=== PATIENT | female | born 1970 | race Hispanic/Latino ===

== ENCOUNTER 2017-06-15 08:38 | Day surgery (SDC) | payer OTHER ==
--- NOTE | 2017-06-15 09:18 | Anesthesia Consultation ---
Anesthesia Consult and Med Hx Date of service: 06/15/17 - Airway Anesthetic Teeth Evaluation: Good, Bridges ROM Head & Neck: Adequate Mental/Hyoid Distance: Adequate Mallampati Class: Class II Intubation Access Assessment: Probably Good - Pulmonary Exam CTA: Yes - Cardiac Exam Cardiac Exam: RRR - Pre-Operative Health Status ASA Pre-Surgery Classification: ASA1 - Pulmonary Hx Smoking: Yes (STOPPED X 15 YRS-1/2PPD X 2YRS) Hx Sleep Apnea: No (EH PRE SCREEN NEGATIVE) - Cardiovascular System Hx Hypertension: No - Central Nervous System Hx Back Pain: Yes - Other Systems Hx Cancer: No
[2017-06-15] MEDS ORDERED: DILAUDID IV PRN (09:19)
[2017-06-15] MEDS ORDERED: PERCOCET 5/325 PO PRN (09:19)
[2017-06-15] MEDS ORDERED: ZOFRAN IV PRN (09:19)
--- NOTE | 2017-06-15 09:19 | Anesthesia Day of Surgery ---
Anesthesia Day of Surgery - Day of Surgery Patient Examined: Yes Patient H&P Reviewed: Yes Patient is NPO: Yes
[2017-06-15] MEDS ORDERED: LACTATED RINGERS 1,000 ML IV SCH (10:00)
[2017-06-15] MEDS ORDERED: VERSED IV NR (10:00)
[2017-06-15] MEDS ORDERED: PEPCID PO NR (10:00)
[2017-06-15] MEDS ORDERED: ANCEF/STERILE WATER 2 GM/20 ML IV NR (11:00)
[2017-06-15] MEDS ORDERED: DIPRIVAN 10 MG/ML IV ONE (11:23)
[2017-06-15] MEDS ORDERED: DILAUDID ONE (11:24)
[2017-06-15] MEDS ORDERED: VERSED ONE (11:24)
[2017-06-15] MEDS ORDERED: XYLOCAINE MPF 2% ONE (11:24)
[2017-06-15] MEDS ORDERED: XYLOCAINE 1% 20 mL ONE (11:26)
[2017-06-15] MEDS ORDERED: MARCAINE 0.25% INFILTRATI ONE ×2 (11:26→11:59)
[2017-06-15] MEDS ORDERED: XYLOCAINE 1% 20 mL INFILTRATI ONE (11:59)
[2017-06-15] MEDS ORDERED: NACL 0.9% IR ONE (12:00)
[2017-06-15] MEDS ORDERED: DECADRON ONE (12:10)
[2017-06-15] MEDS ORDERED: ANTIBIOTIC OINT TP ONE (12:20)
[2017-06-15] MEDS ORDERED: DECADRON IM ONE (12:49)
[2017-06-15 13:05] VITALS: BP 128/73
--- NOTE | 2017-06-15 13:34 | XRay Report ---
Left foot: Postoperative exam. AP and lateral projections demonstrate edema and soft tissue thickening along the medial foot adjacent to the tarsal and metatarsal bones with a single small gas bubble. The lateral aspect of the distal first metatarsal is relatively straight with a thin cortex and may have been the site of surgery. No other significant findings. Impression: No apparent postoperative complications identified.
--- NOTE | 2017-06-20 06:27 | Operative Report ---
PREOPERATIVE DIAGNOSIS: Bunion deformity, left foot. POSTOPERATIVE DIAGNOSIS: Bunion deformity, left foot. PROCEDURE: Modified Scott bunionectomy, left foot. SURGEON: Chris Bardales DPM. ANESTHESIA: Local with monitored anesthesia care and IV sedation. TOURNIQUET: Pneumatic ankle tourniquet, left ankle. ESTIMATED BLOOD LOSS: Less than 10 mL. PROCEDURE IN DETAIL: The patient was brought into the operating room, placed on the operating table in supine position. Following intravenous sedation, the patient was given 1 gram of Ancef prophylactically. At this time, 12 mL of 1:1 mix of 1% lidocaine plain plus 0.25% Marcaine plain was infiltrated into the affected site after cleansing with alcohol. It ____ to be noted the patient is allergic to IODINE, so no iodine was used in the scrubbing prep. At that time, a well padded pneumatic ankle tourniquet placed 2-3 cm proximal to both the medial and lateral malleolus and the procedure was begun. At this time, attention was directed to the medial aspect of the first metatarsophalangeal joint, which is 6 cm linear longitudinal incision was made and deepened with both sharp and blunt dissection with care being taken to protect all vital neurovascular structures as needed. At this time, the area was deepened with both sharp and blunt dissections down to the level of the capsule. ____ was transected without incident. At this time, exposure of the first metatarsal head on the affected area was performed, was observed and a sagittal saw was used to remove a 3 mm wedge of bone from the medial aspect of the first metatarsal head and in the dorsal aspect 2 mm wedge. This was followed by 2 mm wedge at the proximal aspect of the proximal phalanx medially. At this time, a deep dissection was used to go laterally to transect the adductor tendon apparatus when the foot would be in position. At this time, a reduction and deformity was noted and good reduction was observed while the foot was held in a loaded position. At this time, redundant tissue was removed from the capsular structures and attention was redirected to the first metatarsophalangeal joint, which ____ to smooth all rough edges. At this time, the foot was held in a more corrected position and 3-0 Vicryl was used ____ structures followed by 4-0 Vicryl, subcuticular closure performed with 4-0 Prolene While the toe was held in a more corrected position with running subcuticular stitches. At this time, 1 mL of dexamethasone phosphate was infiltrated to the affected site. The area was dressed with Adaptic, sterile compression dressing and the patient's pneumatic ankle tourniquet was deflated. Prompt hyperemic response was noted to all digits of the affected foot. The patient tolerated the procedure and anesthesia well, and will be transferred to recovery and will be discharged home with both written and oral postoperative instructions. JOB# [id number] TRIPP/[id number]
== END 2017-06-15 13:20 | disposition home or self-care (01) ==
LOC: OR 08:38
PROVIDERS: ATTEND Podiatrist Foot & Ankle Surgery
DX: M21.612 Bunion of left foot (principal); F17.210 Nicotine dependence, cigarettes, uncomplicated
CPT/HCPCS: 28292; 73620; J0690; J1100; J1170; J2250; J2704; J7120